=== PATIENT | male | born 1945 | race Caucasian/White ===

== ENCOUNTER → 2018-12-16 | Outpatient (CLI) | payer MEDICARE ==
[~2018-12-16] MED LIST: ASA81 MG PO; CYANOCOBAL1000 MCG/1 IJ; DOXYCYCLINE HY100 M3 PO; GABAPENTIN100 MG PO; GABAPENTIN300 MG/6 M PO; LEVAQUIN500 MG PO; LORTAB 7.51 EA GT; PULMICORT1 EA INH; SINEMET 25-1001 EACH PO; Z.0.ACCUPRIL20 MG PO; Z.0.BENTYL20 MG PO; Z.0.GLUCOPHAGE1000 M PO; Z.0.LASIX40 MG PO; Z.0.NORVASC5 MG PO; Z.0.PLAVIX75 MG PO; Z.0.SYNTHROID175 MCG PO; Z.0.VICTOZA 3-0.6 MG; Z.0.ZOCOR20 MG PO; Z.0.ZOLOFT100 MG PO; [UNRECOGNIZED DRUG - OTHER] IM; [UNRECOGNIZED DRUG - OTHER] PO; [UNRECOGNIZED DRUG - OTHER] PO; [UNRECOGNIZED DRUG - OTHER] SQ
--- NOTE | 2018-12-29 04:56 | Polysomnography ---
DATE OF STUDY: December 16, 2018 TITRATION POLYSOMNOGRAM HISTORY: This is a 73-year-old gentleman with difficulty tolerating current CPAP. Patient has a past medical history of obstructive sleep apnea, diabetes, COPD, Parkinson, asbestosis exposure, thyroid disorder, hypertension, hyperlipidemia. Patient had on May 28, 2011, split night polysomnogram demonstrating an apnea-hypopnea index of 88.7 events per hour, and lowest oxygen saturation of 82%. This was improved with CPAP at 11 cm of pressure. Current medications are Januvia, simvastatin, amlodipine, clothiapine, pramipexole, Keppra, rivastigmine, Sertraline, glimepiride, levothyroxine, pantoprazole, metformin. BMI is 32. [place] sleepiness scale score is 8. The patient presents for a titration polysomnogram. FINDINGS: Polysomnogram revealed total sleep time of 62.5 minutes with sleep efficiency at 37.7%. Sleep onset latency was achieved in 37 minutes. The patient was feeling restless during time of study. Intermittent sleep was noted. Sleep was initiated at 5 cm of water and increments of increased to 11 cm of water delivered using a Respironics lupe gel medium full face mask, heated humidifier and EPR of 3. This was a limited titration due to decreased titration study, but CPAP was optimally corrected at a pressure of 11 cm of water with the apnea-hypopnea index of zero events per hour. The lowest oxygen saturation was 96%. There was small undulation in the patient's respiration on 11 cm, which was less than the undulation at 9 cm of water pressure. This study was limited due to the absence of REM sleep. A total of 130 periodic limb movements were noted for a periodic limb movement index of 124.8 events per hour. Sleep movements were low amplitude, but on camera the feet, knees and hip were noted to be lightly rocking back and forth during these events. Single lead EKG analysis showed rare PVCs, but was otherwise unremarkable. INTERPRETATION: This overnight CPAP titration study revealed: 1. Improvement in terms of alleviation of obstructive sleep apnea with a CPAP pressure of 11 cm of water delivered using a Respironics Lupe Gel medium full face mask, heated humidifier, and EPR of 3. Of note, this was a limited titration study as noted above, but this pressure setting worked reasonably well during this study. Therefore, the same settings recommended during sleep. 2. Periodic limb movements in sleep. Periodic leg movement index was 124.8 events per hour. PLMS can be seen during CPAP titration, and may subside after compliant use of CPAP. PLM (PLMS with disorder) can be associated with or secondary to a condition such as restless leg syndrome, iron deficiency anemia, electrolyte imbalance, such as hypomagnesemia, peripheral neuropathy, use of medications, such as antidepressants or others. If associated with a clinical sleep disturbance or a complaint of fatigue after compliant use of CPAP, further evaluation and management of these factors may be helpful. MD MARIA ISABEL Alves Certified in Sleep Medicine Job#: [id number] RI MTDBrigida
== END ==
LOC: SLEEP 19:38
PROVIDERS: ATTEND Internal Medicine Critical Care Medicine
DX: G47.33 Obstructive sleep apnea (adult) (pediatric) (principal)

== ENCOUNTER → 2019-06-23 | Day surgery (SDC) | payer MEDICARE ==
[2019-06-14 12:31] LABS: BASOPHILS % 0.4 % (0.0-1.0); EOSINOPHILS # (AUTO) 0.3 (0.0-0.4); EOSINOPHILS % 3.5 % (0.0-6.0); HEMATOCRIT 34.8 % (38.2-49.6); HEMOGLOBIN 11.5 g/dL (14.0-18.0); LYMPHOCYTES # (AUTO) 1.6 (1.0-3.2); LYMPHOCYTES % 18.9 % (18.0-39.1); MEAN CORPUSCULAR HEMOGLOBIN 29.6 pg (28-32); MEAN CORPUSCULAR VOLUME 89.7 fL (81-99); MONOCYTES # (AUTO) 0.5 (0.2-0.8); MONOCYTES % 6.2 % (4.4-11.3); NEUTROPHILS # (AUTO) 5.8 (2.1-6.9); NEUTROPHILS % 69.9 % (38.7-80.0); PLATELET COUNT 207 x10e3/uL (140-360); RED BLOOD COUNT 3.88 x10e6/uL (4.3-5.7); RED CELL DISTRIBUTION WIDTH 13.2 % (11.7-14.4)
[~2019-06-23] MED LIST changes: +FENTANYL CITRATE/PF 100MCG/2 ML INJ ONE; +GLIMEPIRIDE2 MG PO; +GLUCAGON FOR INJ 1 MG VIAL ONE; +HYOSCYAMINE 0.125 MG TAB ONE; +JANUVIA100 MG PO; +LEVETIRACETAM500 MG PO; +LEVOTHYROXINE50 MCG PO; +MIDAZOLAM HCL 2 MG/2 ML VIAL ONE; +PANTOPRAZOLE SO40 MG PO; +PRAMIPEXOLE D0.25 MG PO; +PROPOFOL IV EMULSION 10 MG/ML 50 ML VIAL ONE; +QUETIAPINE FUMA25 MG PO
[2019-06-23 10:30] VITALS: BP 131/58
--- NOTE | 2019-06-23 13:26 | Operative Report ---
DATE OF PROCEDURE: 06/23/2019 SURGEON: Bob Casiano MD PROCEDURES: Colonoscopy with polypectomy. INDICATIONS FOR COLONOSCOPY: Surveillance colonoscopy, personal history of colon polyps. MEDICATIONS: The patient was done under MAC, please see anesthesiologist's note. PROCEDURE IN DETAIL: With the patient in left lateral decubitus position, a flexible fiberoptic Olympus colonoscope was inserted into the rectum with ease and advanced all the way to the cecum. Unfortunately, large amount of retained fecal material was encountered in the cecum and the ascending colon and was suboptimally visualized. One polyp was snared, one polyp was hot biopsied from the transverse colon. One polyp was hot biopsied from the descending colon. One polyp was hot biopsied from the rectum. The scope was then retroflexed into the distal rectum and small internal hemorrhoids were noted, none of which was actively bleeding. The scope was then straightened out, it was subsequently withdrawn, and the patient tolerated the procedure well. IMPRESSION: 1. Poor prep with large amount of retained stools in the right colon. 2. Transverse colon polyps x2, one snared and one hot biopsied. 3. Descending colon polyp, hot biopsied. 4. Rectal polyp, hot biopsied. 5. Internal hemorrhoids, none actively bleeding. PLAN: Follow up histology. Initiate high-fiber low-fat diet. Initiate high-fiber supplement. The patient will need a repeat colonoscopy after a better prep. Bob Casiano MD [facility] [place] /[id number] cc: Gabriel Casiano MD
== END | disposition home or self-care (01) ==
LOC: OR 08:06
PROVIDERS: ATTEND Internal Medicine Gastroenterology
DX: Z09 Encounter for follow-up examination after completed treatment for conditions other than malignant neoplasm (principal); D12.3 Benign neoplasm of transverse colon; D12.4 Benign neoplasm of descending colon; K62.1 Rectal polyp; K59.00 Constipation, unspecified; K64.8 Other hemorrhoids; G47.33 Obstructive sleep apnea (adult) (pediatric); I25.10 Atherosclerotic heart disease of native coronary artery without angina pectoris; I10 Essential (primary) hypertension; E11.9 Type 2 diabetes mellitus without complications; B15.9 Hepatitis A without hepatic coma; I69.398 Other sequelae of cerebral infarction; G20 Parkinson's disease; J61 Pneumoconiosis due to asbestos and other mineral fibers; E03.9 Hypothyroidism, unspecified; Z01.810 Encounter for preprocedural cardiovascular examination; Z79.84 Long term (current) use of oral hypoglycemic drugs; Z68.32 Body mass index [BMI] 32.0-32.9, adult; Z87.891 Personal history of nicotine dependence; Z80.0 Family history of malignant neoplasm of digestive organs
CPT/HCPCS: 36415 ×2; 45384; 45385; 82948; 85025; 88305; 93005; J1610; J2250; J2704; J3010; 45378

== ENCOUNTER → 2020-01-13 | Outpatient (CLI) | payer MEDICARE ==
[~2020-01-13] MED LIST changes: -FENTANYL CITRATE/PF 100MCG/2 ML INJ ONE; -GLUCAGON FOR INJ 1 MG VIAL ONE; -HYOSCYAMINE 0.125 MG TAB ONE; -MIDAZOLAM HCL 2 MG/2 ML VIAL ONE; -PROPOFOL IV EMULSION 10 MG/ML 50 ML VIAL ONE
--- NOTE | 2020-01-13 13:30 | Diagnostic Imaging Report ---
EXAMINATION: CHEST 2 VIEWS INDICATION: Acute bronchitis COMPARISON: None FINDINGS: LINES/TUBES:None LUNGS:The lungs are hyperinflated. No focal consolidation or pulmonary edema. Right basilar calcified granuloma. Mild diffuse bronchial wall thickening. PLEURA:No pleural effusion or pneumothorax. MEDIASTINUM:The cardiomediastinal silhouette appears normal in size and shape. Atherosclerotic calcifications of the thoracic aorta. BONES/SOFT TISSUES:No acute osseous injury. ABDOMEN:No free air under the diaphragm. IMPRESSION: Hyperinflated lungs. Mild diffuse bronchial wall thickening can be seen with bronchitis. No lobar pneumonia. Signed by: Benitez Chaudhary MD on 01/13/2020 1:28 PM
== END ==
LOC: RAD 12:47
DX: J45.909 Unspecified asthma, uncomplicated (principal)
CPT/HCPCS: 71046